=== PATIENT | female | born 1995 | race Caucasian/White ===

== ENCOUNTER → 2018-02-22 07:58 | Outpatient (CLI) | payer SELFPAY ==
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
== END ==
PROVIDERS: PCP Nurse Practitioner; Visit Provider Nurse Practitioner
DX: S29.019A Strain of muscle and tendon of unspecified wall of thorax, initial encounter (principal); S39.012A Strain of muscle, fascia and tendon of lower back, initial encounter; R20.8 Other disturbances of skin sensation
CPT/HCPCS: 72146; 72148; 76376

== ENCOUNTER 2018-04-19 08:00 | Outpatient (RCR) | payer BC, SELFPAY ==
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
== END 2018-04-19 08:05 | disposition home or self-care (01) ==
LOC: PT 08:00
PROVIDERS: Visit Provider Nurse Practitioner
DX: M51.24 Other intervertebral disc displacement, thoracic region (principal)
CPT/HCPCS: 97010; 97014; 97033; 97035; 97110; 97140; 97163; G0283

== ENCOUNTER → 2018-11-11 11:17 | Outpatient (CLI) | payer BC, SELFPAY ==
[2018-11-14 18:18] LABS: H. pylori Stool Ag, EIA Negative (Negative)
== END ==
PROVIDERS: Visit Provider Nurse Practitioner Family
DX: R10.9 Unspecified abdominal pain (principal); K21.9 Gastro-esophageal reflux disease without esophagitis
CPT/HCPCS: 87338

== ENCOUNTER → 2019-07-04 11:01 | Outpatient (POV) | payer BC, SELFPAY | PROVIDERS: PCP Otolaryngology; Visit Provider Otolaryngology | DX: Z00.00 Encounter for general adult medical examination without abnormal findings (principal) ==

== ENCOUNTER 2019-12-13 06:44 | Emergency (ER) | payer BC, SELFPAY ==
[2019-12-13 06:49] VITALS: BP 136/68; PULSE 94; RESP 20; TEMP 36.8; O2SAT 99; BMI 21.2
--- NOTE | 2019-12-13 06:50 | PC.NURSE ---
at the bedside
--- NOTE | 2019-12-13 07:03 | XR_ITS ---
PROCEDURE: XR CHEST PORTABLE CLINICAL HISTORY: soa Shortness of air COMPARISON: No exams were available for comparison FINDINGS: The cardiomediastinal silhouette and pulmonary vascularity are within normal limits. The lungs are clear without infiltrates, suspicious nodules, or pleural effusions. No acute bony abnormalities. IMPRESSION: No acute findings. Dictated by: Tomas Garg MD 12/13/2019 07:39 Electronically signed by Tomas Garg MD in [facility] 12/13/2019 07:39
--- NOTE | 2019-12-13 07:05 | HMH.EDGENADL ---
ED Disposition Clinical Impression: Laryngitis Disposition: Home, Self-Care Condition on Discharge: Good Instructions: DI for Laryngitis Prescriptions: Albuterol Sulfate [Proventil-HFA 90mcg/puff Inh] 1 - 2 puffs IH Q6HP PRN #1 inh PRN Reason: Wheezing Transmission Status: Received by [facility] # predniSONE [Prednisone 20mg Tab] 20 mg PO BID #10 tab Transmission Status: Received by [facility] # Referrals: PCP,No [Primary Care Provider] - - Critical Care Critical Care Time: No Attestation: On , the high probability of a clinically significant, sudden or life threatening deterioration of the following system(s) required my full and direct attention, intervention and personal management. The time I documented below is in addition to time spent performing reported procedures but includes the following listed in this critical care notation. Medical Decision Making - Medical Records Medical records reviewed: Yes: I reviewed the patient's medical records. - Diomedes Inquiry Pt receiving controlled substance: No Vital Signs: 12/13/19 06:49 Temperature 98.2 F Temperature Source Oral Pulse Rate [Left] 94 H Respiratory Rate 20 Blood Pressure [Right Arm] 136/68 Blood Pressure Mean [Right Arm] 90 Blood Pressure Source [Right Arm] Automatic Cuff Blood Pressure Position [Right Arm] Supine 02 Sat by Pulse Oximetry 99 Oxygen Delivery Method Room Air - Lab Data Lab results reviewed: Yes: I reviewed the patient's lab results. Lab Results 12/13/19 06:52: WBC 11.0 H, RBC 5.07, Hgb 15.5, Hct 45.5, MCV 89.8, MCH 30.6, MCHC 34.1, RDW 12.7, Plt Count 237, MPV 8.4, Neut % (Auto) 55.4, Lymph % (Auto) 37.6, [place] % (Auto) 4.0, Eos % (Auto) 2.0, Baso % (Auto) 0.9, Neut # (Auto) 6.1, Lymph # (Auto) 4.1, [place] # (Auto) 0.4, Eos # (Auto) 0.2, Baso # (Auto) 0.1 12/13/19 06:52: Sodium 141, Potassium 3.4 L, Chloride 102, Carbon Dioxide 29, Anion Gap 13.4, BUN 7, Creatinine 0.60, Estimated Creat Clear 124, Estimated GFR 123, Est GFR ( Amer) 149, Glucose 89, Calcium 9.5 12/13/19 06:52: SARS-CoV-2 IgG Ab (Rapid) Negative, SARS-CoV-2 IgM Ab (Rapid) Negative 12/13/19 07:10: Group A Strep Rapid Negative Result diagrams: 12/13/19 06:52 12/13/19 06:52 Orders (Tests/Meds): ED MEDICATIONS Discontinued Medications Generic Name Dose Route Start Last Admin Trade Name Vivek PRN Reason Stop Dose Admin Albuterol/Ipratropium 3 ml 12/13/19 06:55 12/13/19 06:57 Duoneb 3ml Neb IH 12/13/19 06:56 3 ml ONCE ONE Administration Methylprednisolone Sodium Succinate 125 mg 12/13/19 06:55 12/13/19 06:57 Solu-Medrol 125mg/2ml Vial IV 12/13/19 06:56 125 mg ONCE ONE Administration ORDERS Category Date Time Status SARS-CoV-2, LEYLA Stat Lab 12/13/19 07:25 Received Strep Screen Confirmation Stat Micro 12/13/19 07:10 Received - Radiology Data #1 Image(s): Chest Image Reviewed: Yes I reviewed the patient's radiology image Preliminary Findings: Normal/NAD - Reevaluation(s) Time: 07:42 Reevaluation #1: Breathing easily. Raspy voice. Medical Decision Narrative: Symptoms are consistent with laryngitis. She was not wheezing on arrival. I do not feel she is having an acute asthma attack. I think she would benefit most from steroids and will prescribe prednisone. She will be given a refill of her albuterol inhaler, which she needs anyway. She is already off work, she says her employer will not let her return until her boyfriend tests negative for COVID. She says on December 20 she will have been off work for 4 weeks. General Adult HPI - General Chief complaint: Shortness of Breath/Dyspnea Stated complaint: Asthma attack Time Seen by Provider: 12/13/19 06:55 Mode of Arrival: Wheelchair Limitations: No Limitations Description of Symptoms (Recalled from ER Triage Doc. by RN): Pt has been having trouble with her asthma since yesterday, worse today, last used her
[2019-12-13 07:13] LABS: Chloride 102 mmol/L (98-107); Sodium 141 mmol/L (136-145)
[2019-12-13 07:14] LABS: Potassium 3.4 mmoL/L (3.5-5.1)
[2019-12-13 07:15] LABS: Basophils # 0.1 K/mm3 (0-0.2); Basophils % 0.9 % (0.1-2.0); Eosinophils # 0.2 K/mm3 (0.0-0.4); Hematocrit 45.5 % (37.0-47.0); Hemoglobin 15.5 g/dL (12.2-16.2); Lymphocytes # 4.1 K/mm3 (0.7-4.5); Lymphocytes % 37.6 % (10-50); Mean Corpuscular HGB Conc 34.1 g/dL (31.8-35.4); Mean Corpuscular Hemoglobin 30.6 pg (27.0-31.2); Mean Corpuscular Volume 89.8 fl (81-99); Mean Platelet Volume 8.4 fl (7.4-10.4); Monocytes # 0.4 K/mm3 (0.1-1.0); Neutrophils # 6.1 K/mm3 (1.8-7.8); Neutrophils % 55.4 % (37.0-80.0); Platelet Count 237 K/mm3 (142-424); Red Blood Count 5.07 M/mm3 (4.20-5.40); Red Cell Distribution Width 12.7 % (11.5-17.5)
[2019-12-13 07:16] LABS: Blood Urea Nitrogen 7 mg/dl (7-17); Creatinine Clearance Estimated 124 mL/min (50-200); Estimated Glomerular Filt Rate 123 ml/min (>60); GFR (African American) 149 ML/MIN (>60)
[2019-12-13 07:17] LABS: Anion Gap 13.4 mEq/L (5-15); Calcium 9.5 mg/dl (8.4-10.2); Carbon Dioxide 29 mmol/L (22.0-30.0); Glucose 89 mg/dl (74-100)
[2019-12-13 07:26] LABS: Strep Scrn Group A (Rapid) Negative (Negative)
[2019-12-13 07:40] LABS: Coronavirus 19 IgG Antibody Negative (Negative); Coronavirus 19 IgM Antibody Negative (Negative)
[2019-12-13 08:05] VITALS: BP 136/68; PULSE 94; RESP 20; TEMP 36.8; O2SAT 99
[2019-12-14 13:38] LABS: Covid-19 Nasal PCR Sendout Lex NOT DETECTED
== END 2019-12-13 08:07 | disposition home or self-care (01) ==
PROVIDERS: Emergency Provider Emergency Medicine
DX: J04.0 Acute laryngitis (principal); E87.6 Hypokalemia; J45.909 Unspecified asthma, uncomplicated; G43.709 Chronic migraine without aura, not intractable, without status migrainosus; Z88.5 Allergy status to narcotic agent; Z90.49 Acquired absence of other specified parts of digestive tract
CPT/HCPCS: 71045; 80048; 85025; 86328; 87430; 96374; 99283; U0004

== ENCOUNTER → 2020-07-09 10:12 | Outpatient (CLI) | payer BC, SELFPAY | PROVIDERS: PCP Nurse Practitioner Family; Visit Provider Nurse Practitioner Family | DX: R55 Syncope and collapse (principal) | CPT/HCPCS: 93225; 93226 ==

== ENCOUNTER 2020-09-21 21:56 | Emergency (ER) | payer BC, SELFPAY ==
[2020-09-21 22:05] VITALS: BP 112/70; PULSE 106; RESP 18; TEMP 37; O2SAT 100; BMI 21.7
[2020-09-21 22:10] VITALS: BP 112/70; PULSE 103; O2SAT 97
[2020-09-21 22:19] LABS: Microscopic, Urine URINE MICROSCOPIC (MICROSCOPIC)
[2020-09-21 22:24] LABS: Appearance,Urine CLEAR (Clear); Bilirubin,Urine Negative (Negative); Blood, Urine TRACE-L (Negative); Color,Urine YELLOW (Yellow); Glucose,Urine (UA) Negative (Negative); Ketones,Urine Negative (Negative); Leukocyte Esterase,Urine Negative (Negative); Nitrate,Urine Negative (Negative); PH,Urine 5.5 (5.0-8.5); Protein,Urine TRACE (Negative); Specific Gravity, Urine >= 1.030 (1.005-1.030); Urobilinogen,Urine 0.2 EU/dl (0.2)
[2020-09-21 22:25] LABS: Urine Pregnancy, HCG Qual. Negative (Negative)
[2020-09-21 22:34] LABS: Bacteria,Urine Trace /lpf; Mucus,Urine 2+ /lpf; RBC,Urine Occasional #/hpf (0-3)
[2020-09-21 22:41] LABS: Basophils # 0.1 K/mm3 (0-0.2); Basophils % 0.8 % (0.1-2.0); Eosinophils # 0.1 K/mm3 (0.0-0.4); Eosinophils % 0.9 % (0.1-12.0); Hematocrit 42.4 % (37.0-47.0); Hemoglobin 14.1 g/dL (12.2-16.2); Lymphocytes # 3.2 K/mm3 (0.7-4.5); Mean Corpuscular HGB Conc 33.4 g/dL (31.8-35.4); Mean Corpuscular Hemoglobin 29.8 pg (27.0-31.2); Mean Corpuscular Volume 89.2 fl (81-99); Mean Platelet Volume 7.6 fl (7.4-10.4); Monocytes # 0.4 K/mm3 (0.1-1.0); Monocytes % 4.1 % (1.7-9.3); Neutrophils # 6.4 K/mm3 (1.8-7.8); Neutrophils % 63.2 % (37.0-80.0); Platelet Count 271 K/mm3 (142-424); Red Blood Count 4.75 M/mm3 (4.20-5.40); Red Cell Distribution Width 12.8 % (11.5-17.5); White Blood Count 10.2 K/mm3 (4.8-10.8)
[2020-09-21 22:48] LABS: Alanine Aminotransferase 30 U/L (12-78); Albumin/Globulin Ratio 1.4 (1.1-1.8); Alkaline Phosphatase 78 U/L (38-126); Amylase 80 U/L (30-110); Anion Gap 11.4 mEq/L (5-15); Aspartate Amino Transferase 40 U/L (14-36); Bilirubin,Total 0.4 mg/dl (0.2-1.3); Blood Urea Nitrogen 11 mg/dl (7-17); Calcium 9.5 mg/dl (8.4-10.2); Carbon Dioxide 28 mmol/L (22.0-30.0); Chloride 104 mmol/L (98-107); Creatinine Clearance Estimated 126 mL/min (50-200); Estimated Glomerular Filt Rate 122 ml/min (>60); GFR (African American) 147 ML/MIN (>60); Globulin 3.6 g/dL (1.3-3.2); Glucose 90 mg/dl (74-100); Lipase 113 U/L (23-300); Potassium 3.4 mmoL/L (3.5-5.1); Sodium 140 mmol/L (136-145); Total Protein,Serum 8.6 g/dl (6.3-8.2)
[2020-09-21 23:06] LABS: C-Reactive Protein 1.3 mg/L (0-4)
[2020-09-21 23:21] VITALS: BP 98/57; PULSE 66; O2SAT 99
[2020-09-21 23:30] LABS: Erythrocyte Sedimentation Rate 14 mm/hr (0-20)
--- NOTE | 2020-09-21 23:37 | HMH.EDNVD ---
ED Disposition Clinical Impression: Abdominal pain Qualifiers: Abdominal location: right lower quadrant Qualified Code(s): R10.31 - Right lower quadrant pain Disposition: Home, Self-Care Condition on Discharge: Good Instructions: DI for Acute Abdominal Pain Additional Instructions: fluids and see pcp for nidia olson Referrals: Karin Leblanc APRN [Primary Care Provider] - - Critical Care Critical Care Time: No Attestation: On 09/21/20, the high probability of a clinically significant, sudden or life threatening deterioration of the following system(s) required my full and direct attention, intervention and personal management. The time I documented below is in addition to time spent performing reported procedures but includes the following listed in this critical care notation. Medical Decision Making - Medical Records Medical records reviewed: Yes: I reviewed the patient's medical records. - Diomedes Inquiry Pt receiving controlled substance: No Vital Signs: 09/21/20 22:05 09/21/20 22:10 09/21/20 23:21 Temperature 98.6 F Temperature Source Oral Pulse Rate 103 H 66 Pulse Rate [Right Brachial] 106 H Respiratory Rate 18 Blood Pressure 112/70 98/57 L Blood Pressure [Right Arm] 112/70 Blood Pressure Mean [Right Arm] 84 Blood Pressure Source [Right Arm] Automatic Cuff Blood Pressure Position [Right Arm] Sitting 02 Sat by Pulse Oximetry 100 97 99 Oxygen Delivery Method Room Air - Lab Data Lab results reviewed: Yes: I reviewed the patient's lab results. Lab Results 09/21/20 22:15: Urine Color Yellow, Urine Appearance Clear, Urine pH 5.5, Ur Specific [place] >= 1.030, Urine Protein Trace, Urine Glucose (UA) Negative, Urine Ketones Negative, Urine Blood Trace-l, Urine Nitrate Negative, Urine Bilirubin Negative, Urine Urobilinogen 0.2, Ur Leukocyte Esterase Negative, Urine RBC Occasional, Urine WBC 5-10, Ur Squamous Epith Cells None, Urine Bacteria Trace, Urine Mucus 2+ 09/21/20 22:15: Urine HCG, Qual Negative 09/21/20 22:35: WBC 10.2, RBC 4.75, Hgb 14.1, Hct 42.4, MCV 89.2, MCH 29.8, MCHC 33.4, RDW 12.8, Plt Count 271, MPV 7.6, Neut % (Auto) 63.2, Lymph % (Auto) 31.0, [place] % (Auto) 4.1, Eos % (Auto) 0.9, Baso % (Auto) 0.8, Neut # (Auto) 6.4, Lymph # (Auto) 3.2, [place] # (Auto) 0.4, Eos # (Auto) 0.1, Baso # (Auto) 0.1 09/21/20 22:35: Sodium 140, Potassium 3.4 L, Chloride 104, Carbon Dioxide 28, Anion Gap 11.4, BUN 11, Creatinine 0.60, Estimated Creat Clear 126, Estimated GFR 122, Est GFR ( Amer) 147, Glucose 90, Calcium 9.5, Total Bilirubin 0.4, AST 40 H, ALT 30, Alkaline Phosphatase 78, C-Reactive Protein 1.3, Total Protein 8.6 H, Albumin 5.0, Globulin 3.6 H, Albumin/Globulin Ratio 1.4, Amylase 80, Lipase 113 09/21/20 22:35: ESR 14 Result diagrams: 09/21/20 22:35 09/21/20 22:35 Orders (Tests/Meds): ED MEDICATIONS Generic Name Dose Route Start Last Admin Trade Name Freq PRN Reason Stop Dose Admin Sodium Chloride 1,000 mls @ 999 mls/hr 09/21/20 23:45 09/22/20 00:00 Sod Chlor 0.9% 1000ml Bag IV 09/22/20 00:45 999 mls/hr .Q1H1M LUZ Administration Ketorolac Tromethamine 30 mg 09/22/20 01:08 Ketorolac 30mg/Ml Vial IV 09/22/20 01:09 ONCE ONE Discontinued Medications Generic Name Dose Route Start Last Admin Trade Name Freq PRN Reason Stop Dose Admin Diatrizoate Meglum/Diatrizoate Sod 30 ml 09/21/20 22:20 09/21/20 22:39 Diatrizoate Heaven 66% & Diatrizoate Na 10% 30ml Udc PO 09/21/20 22:21 30 ml ONCE ONE Administration Diatrizoate Meglum/Diatrizoate Sod 20 ml 09/22/20 00:39 09/22/20 00:41 Diatrizoate Meglumine(Gastrografin) 66%-10% 120ml PO 09/22/20 00:40 20 ml ONCE ONE Administration Iopamidol 75 ml 09/22/20 00:39 09/22/20 00:41 Iopamidol-370 (76%);100ml Bottle IV 09/22/20 00:40 75 ml ONCE ONE Administration Sodium Chloride 10 ml 09/22/20 00:39 09/22/20 00:41 Sodium Chloride 0.9% 10ml Syr (Rad Only) IV 09/22/20 00:40
--- NOTE | 2020-09-22 00:15 | CT_ITS ---
PROCEDURE INFORMATION: Exam: CT Abdomen And Pelvis With Contrast Exam date and time: 09/22/2020 12:15 AM Age: 25 years old Clinical indication: Nausea and other: Diarrhea; Abdominal pain; Localized; Right lower quadrant (rlq); Prior surgery; Surgery date: 6+ months; Patient HX: Rlq pain with n/d, HX of gallbladder SX; Additional info: Rlq abd pain TECHNIQUE: Imaging protocol: Computed tomography of the abdomen and pelvis with contrast. Radiation optimization: All CT scans at this facility use at least one of these dose optimization techniques: automated exposure control; mA and/or kV adjustment per patient size (includes targeted exams where dose is matched to clinical indication); or iterative reconstruction. Contrast material: ISOVUE; Contrast volume: 75 ml; Contrast route: IV; Other contrast: Oral, gastro, 30; COMPARISON: ABDPELWO CT abdomen pelvis wo con 11/25/2018 3:39 PM FINDINGS: Lungs: Lung bases are clear. Heart: Visualized cardiac chambers are normal. Liver: Normal contour, attenuation and size. No intrahepatic mass. Gallbladder and bile ducts: Status post cholecystectomy. Pancreas: No peripancreatic inflammatory infiltration or fluid. No ductal dilation. Spleen: No splenomegaly or splenic mass. Adrenal glands: Normal. No mass. Kidneys and ureters: No nephrolithiasis, ureterolithiasis or hydronephrosis. Stomach and bowel: There is moderate fecal retention within the right hemicolon. No small bowel obstruction or ileus is seen. There is no gastric wall thickening. Appendix: The appendix is not seen well because of adjacent bowel loops but the visualized portions of the appendix appear air-filled and normal in caliber. Intraperitoneal space: No free fluid, free air or focal inflammatory infiltration. Vasculature: No abdominal aortic aneurysm. The portal, splenic and superior mesenteric veins appear patent. Lymph nodes: No enlarged lymph nodes within the retroperitoneal space or mesentery. Urinary bladder: Unremarkable as visualized. Reproductive: Unremarkable as visualized. Bones/joints: Unremarkable. No acute fracture. No osteolytic or blastic bone lesions. Soft tissues: Paraspinous and extracorporeal soft tissues are unremarkable. IMPRESSION: 1. Status post cholecystectomy. 2. Moderate fecal retention within the right hemicolon. 3. Incomplete visualization of the appendix but the portion seen appears normal.
[2020-09-22 00:43] VITALS: BP 112/64; PULSE 74; O2SAT 100
[2020-09-22 01:17] VITALS: BP 101/59; PULSE 78; RESP 16; TEMP 36.6; O2SAT 100
== END 2020-09-22 01:19 | disposition home or self-care (01) ==
PROVIDERS: Emergency Provider Emergency Medicine; PCP Nurse Practitioner Family
DX: R10.31 Right lower quadrant pain (principal); R11.0 Nausea; G43.709 Chronic migraine without aura, not intractable, without status migrainosus
CPT/HCPCS: 74177; 80053; 81001; 81025; 82150; 83690; 85025; 85651; 86140; 87086; 96365; 99283; Q9967

== ENCOUNTER 2021-02-09 11:08 | Emergency (ER) | payer SELFPAY ==
[2021-02-09 11:10] VITALS: BP 109/64; PULSE 93; RESP 18; TEMP 37.1; O2SAT 99; BMI 20.8
--- NOTE | 2021-02-09 11:49 | HMH.EDGENADL ---
ED Disposition Clinical Impression: Qualifiers: Weeks of gestation: less than 8 weeks Qualified Code(s): Z3A.01 - Less than 8 weeks gestation of Disposition: Home, Self-Care Condition on Discharge: Good Instructions: Human Chorionic Gonadotropin Prescriptions: Pnv No.95/Ferrous Fum/Folic AC [ Caplet] 1 each PO DAILY #30 tab Transmission Status: Pending to [facility] #[id number] Referrals: Karin Leblanc APRN [Primary Care Provider] - Christoph Gray MD [Staff Physician] - - Critical Care Critical Care Time: No Attestation: On 02/09/21, the high probability of a clinically significant, sudden or life threatening deterioration of the following system(s) required my full and direct attention, intervention and personal management. The time I documented below is in addition to time spent performing reported procedures but includes the following listed in this critical care notation. Medical Decision Making - Medical Records Medical records reviewed: Yes: I reviewed the patient's medical records. - Diomedes Inquiry Pt receiving controlled substance: No Vital Signs: 02/09/21 11:10 Temperature 98.7 F Temperature Source Oral Pulse Rate [Left Radial] 93 H Respiratory Rate 18 Blood Pressure [Right Arm] 109/64 L Blood Pressure Mean [Right Arm] 79 Blood Pressure Source [Right Arm] Automatic Cuff Blood Pressure Position [Right Arm] Sitting 02 Sat by Pulse Oximetry 99 Oxygen Delivery Method Room Air - Lab Data Lab Results 02/09/21 11:30: Urine Color Yellow, Urine Appearance Clear, Urine pH 6.0, Ur Specific [place] >= 1.030, Urine Protein Negative, Urine Glucose (UA) Negative, Urine Ketones 1+, Urine Blood Trace-i, Urine Nitrate Negative, Urine Bilirubin Negative, Urine Urobilinogen 0.2, Ur Leukocyte Esterase Negative, Urine RBC Occasional, Urine WBC None, Ur Squamous Epith Cells Occasional, Amorphous Sediment 1+, Urine Bacteria None, Urine Mucus Trace 02/09/21 11:30: Urine HCG, Qual Positive 02/09/21 11:55: WBC 6.0, RBC 4.54, Hgb 13.8, Hct 42.8, MCV 94.3, MCH 30.3, MCHC 32.1, RDW 12.4, Plt Count 246, MPV 8.9, Neut % (Auto) 55.5, Lymph % (Auto) 35.8, [place] % (Auto) 6.6, Eos % (Auto) 0.9, Baso % (Auto) 1.2, Neut # (Auto) 3.3, Lymph # (Auto) 2.2, [place] # (Auto) 0.4, Eos # (Auto) 0.1, Baso # (Auto) 0.1 02/09/21 11:55: Sodium 139, Potassium 3.6, Chloride 105, Carbon Dioxide 23, Anion Gap 14.6, BUN 7, Creatinine 0.50 L, Estimated Creat Clear 140, Estimated GFR 150, Est GFR ( Amer) 182, Glucose 91, Calcium 9.3, Total Bilirubin 0.5, AST 44 H, ALT 31, Alkaline Phosphatase 70, Total Protein 7.6, Albumin 4.5, Globulin 3.1, Albumin/Globulin Ratio 1.5, HCG, Quant 5193 H Result diagrams: 02/09/21 11:55 02/09/21 11:55 Orders (Tests/Meds): ED MEDICATIONS Discontinued Medications Generic Name Dose Route Start Last Admin Trade Name Renéq PRN Reason Stop Dose Admin Acetaminophen 500 mg 02/09/21 11:38 02/09/21 11:59 Acetaminophen 500mg Tab PO 02/09/21 11:39 Not Given ONCE ONE Sodium Chloride 1,000 mls @ 999 mls/hr 02/09/21 11:45 02/09/21 11:59 Sod Chlor 0.9% 1000ml Bag IV 02/09/21 12:45 Not Given .Q1H1M LUZ - Reevaluation(s) Time: 13:25 Reevaluation #1: On reevaluation, the patient does have hCG consistent with early . I did explain to the patient that I would like to try an ultrasound given her levels. She is declining any medications and further imaging. Patient states she does not have insurance and does not want to be charged for any of this. I did explain to her that we need to obtain these test regardless of her insurance status. She declines again. I did explain to the patient that she needs to follow-up in the emergency department or with [employer] [employer] in 48 hours for repeat hCG. She verbalized understanding. Given strict return precautions. Medical Decision Narrative: 45-year-old female presented to the emergency department with some abdominal cramp
[2021-02-09 12:18] LABS: Chloride 105 mmol/L (98-107); Potassium 3.6 mmoL/L (3.5-5.1); Sodium 139 mmol/L (136-145)
[2021-02-09 12:19] LABS: Basophils # 0.1 K/mm3 (0-0.2); Basophils % 1.2 % (0.1-2.0); Eosinophils # 0.1 K/mm3 (0.0-0.4); Eosinophils % 0.9 % (0.1-12.0); Hematocrit 42.8 % (37.0-47.0); Hemoglobin 13.8 g/dL (12.2-16.2); Lymphocytes # 2.2 K/mm3 (0.7-4.5); Lymphocytes % 35.8 % (10-50); Mean Corpuscular HGB Conc 32.1 g/dL (31.8-35.4); Mean Corpuscular Hemoglobin 30.3 pg (27.0-31.2); Mean Corpuscular Volume 94.3 fl (81-99); Mean Platelet Volume 8.9 fl (7.4-10.4); Monocytes # 0.4 K/mm3 (0.1-1.0); Monocytes % 6.6 % (1.7-9.3); Neutrophils # 3.3 K/mm3 (1.8-7.8); Neutrophils % 55.5 % (37.0-80.0); Platelet Count 246 K/mm3 (142-424); Red Blood Count 4.54 M/mm3 (4.20-5.40); Red Cell Distribution Width 12.4 % (11.5-17.5)
[2021-02-09 12:20] LABS: Alanine Aminotransferase 31 U/L (12-78); Alkaline Phosphatase 70 U/L (38-126); Aspartate Amino Transferase 44 U/L (14-36); Bilirubin,Total 0.5 mg/dl (0.2-1.3); Blood Urea Nitrogen 7 mg/dl (7-17); Creatinine Clearance Estimated 140 mL/min (50-200); Estimated Glomerular Filt Rate 150 ml/min (>60); GFR (African American) 182 ML/MIN (>60)
[2021-02-09 12:21] LABS: Albumin Level 4.5 g/dl (3.5-5.0); Albumin/Globulin Ratio 1.5 (1.1-1.8); Anion Gap 14.6 mEq/L (5-15); Calcium 9.3 mg/dl (8.4-10.2); Carbon Dioxide 23 mmol/L (22.0-30.0); Globulin 3.1 g/dL (1.3-3.2); Glucose 91 mg/dl (74-100); Total Protein,Serum 7.6 g/dl (6.3-8.2)
[2021-02-09 12:26] LABS: Urine Pregnancy, HCG Qual. Positive (Negative)
[2021-02-09 12:38] LABS: HCG,Quantitative 5193 mIU/ml (0-5.42)
[2021-02-09 13:01] LABS: Microscopic, Urine URINE MICROSCOPIC (MICROSCOPIC)
[2021-02-09 13:03] LABS: Appearance,Urine CLEAR (Clear); Bilirubin,Urine Negative (Negative); Blood, Urine TRACE-I (Negative); Color,Urine YELLOW (Yellow); Glucose,Urine (UA) Negative (Negative); Ketones,Urine 1+ (Negative); Leukocyte Esterase,Urine Negative (Negative); Nitrate,Urine Negative (Negative); Protein,Urine Negative (Negative); Specific Gravity, Urine >= 1.030 (1.005-1.030); Urobilinogen,Urine 0.2 EU/dl (0.2)
[2021-02-09 13:17] LABS: Amorphous Sediment,Urine 1+ /lpf; Mucus,Urine Trace /lpf; RBC,Urine Occasional #/hpf (0-3); Squamous Epithelial Cell,Urine Occasional #/hpf (0-5)
[2021-02-09 13:41] VITALS: BP 110/69; PULSE 87; RESP 18; TEMP 37.1; O2SAT 98
== END 2021-02-09 13:42 | disposition home or self-care (01) ==
PROVIDERS: Emergency Provider Emergency Medicine; PCP Nurse Practitioner Family
DX: R10.30 Lower abdominal pain, unspecified (principal); Z3A.01 Less than 8 weeks gestation of pregnancy
CPT/HCPCS: 80053; 81001; 81025; 84702; 85025; 99282

== ENCOUNTER 2021-02-15 13:04 | Emergency (ER) | payer SELFPAY ==
[2021-02-15 13:06] VITALS: BP 100/61; PULSE 82; RESP 18; TEMP 36.9; O2SAT 100; BMI 20.8
--- NOTE | 2021-02-15 13:19 | HMH.EDGENADL ---
ED Disposition Clinical Impression: Qualifiers: Weeks of gestation: less than 8 weeks Qualified Code(s): Z3A.01 - Less than 8 weeks gestation of Abdominal pain Qualifiers: Abdominal location: lower abdomen, unspecified Qualified Code(s): R10.30 - Lower abdominal pain, unspecified Disposition: Home, Self-Care Condition on Discharge: Good Instructions: DI for Acute Abdominal Pain, DI for -- Discomforts and Remedies Additional Instructions: Tylenol for pain. Follow-up with Dr. Damon, call Wednesday to make appointment. Return to emergency department if severe pain, vomiting, fever, vaginal bleeding. Referrals: Provider,Referral, [Primary Care Provider] - - Critical Care Critical Care Time: No Attestation: On 02/15/21, the high probability of a clinically significant, sudden or life threatening deterioration of the following system(s) required my full and direct attention, intervention and personal management. The time I documented below is in addition to time spent performing reported procedures but includes the following listed in this critical care notation. Medical Decision Making - Medical Records Medical records reviewed: Yes: I reviewed the patient's medical records. MR Comment: Reviewed emergency department note from 02/09/2021. Physician reports that patient refused ultrasound. Was advised to follow-up with OB and to have repeat quantitative beta-hCG in 2 days. Beta hCG was 5193 in ER. No repeat at this facility. - Diomedes Inquiry Pt receiving controlled substance: No Vital Signs: 02/15/21 13:06 Temperature 98.5 F Temperature Source Oral Pulse Rate [Left Radial] 82 Respiratory Rate 18 Blood Pressure [Right Arm] 100/61 L Blood Pressure Mean [Right Arm] 74 Blood Pressure Source [Right Arm] Automatic Cuff Blood Pressure Position [Right Arm] Sitting 02 Sat by Pulse Oximetry 100 Oxygen Delivery Method Room Air - Lab Data Lab Results 02/15/21 13:26: Urine Color Yellow, Urine Appearance Clear, Urine pH 7.0, Ur Specific [place] 1.020, Urine Protein Negative, Urine Glucose (UA) Negative, Urine Ketones Negative, Urine Blood Trace-i, Urine Nitrate Negative, Urine Bilirubin Negative, Urine Urobilinogen 0.2, Ur Leukocyte Esterase Negative, Urine RBC Occasional, Urine WBC None, Ur Squamous Epith Cells None, Urine Bacteria Trace 02/15/21 13:40: WBC 7.1, RBC 4.87, Hgb 14.8, Hct 45.0, MCV 92.5, MCH 30.5, MCHC 33.0, RDW 12.4, Plt Count 258, MPV 8.8, Neut % (Auto) 59.3, Lymph % (Auto) 34.6, [place] % (Auto) 4.1, Eos % (Auto) 0.6, Baso % (Auto) 1.3, Neut # (Auto) 4.2, Lymph # (Auto) 2.5, [place] # (Auto) 0.3, Eos # (Auto) 0.0, Baso # (Auto) 0.1 02/15/21 13:40: Sodium 138, Potassium 3.7, Chloride 103, Carbon Dioxide 26, Anion Gap 12.7, BUN 4 L, Creatinine 0.40 L, Estimated Creat Clear 176, Estimated GFR 194, Est GFR ( Amer) 235, Glucose 90, Calcium 9.5 Result diagrams: 02/15/21 13:40 02/15/21 13:40 Orders (Tests/Meds): ORDERS Category Date Time Status Basic Metabolic Panel Stat Lab 02/15/21 13:40 Results Beta HCG, Quant [HCG,Quantitative] Stat Lab 02/15/21 13:40 Results US OB transvaginal Stat Ultrasound 02/15/21 13:23 Taken - US Data US Images: Pelvis Findings Narrative: As per [facility] procedure, ultrasound report received from vehicle modification technician: Viable 6-week 1 day intrauterine with cardiac activity. Right corpus luteum cyst. Some fluid-filled loops of bowel superior to uterus. Tilted uterus. General Adult HPI - General Stated complaint: maybe a few weeks , abdominal pain Time Seen by Provider: 02/15/21 13:10 - History of Present Illness HPI narrative: Patient states she is prima , a few weeks , and having suprapubic abdominal pain. States that she found out she was a few weeks ago and then was seen here in this emergency department last week with the same pain. She says the pain started on 02/02/2021 and is in
--- NOTE | 2021-02-15 13:23 | US_ITS ---
PROCEDURE INFORMATION: Exam: US , Transvaginal Exam date and time: 02/15/2021 1:23 PM Age: 25 years old Clinical indication: complicated by abdominal or pelvic pain; Lower; First trimester (<14 weeks 0 days); Gestational age or lmp: 8-10; ; Additional info: Abdominal pain, , R/O ectopic TECHNIQUE: Imaging protocol: Real-time transvaginal obstetrical ultrasound of the maternal pelvis with image documentation. Transvaginal imaging was used for better evaluation of the fetus, adnexa, and/or cervix. COMPARISON: CT ABDOMEN PELVIS W CON 09/22/2020 12:21 AM FINDINGS: Gestation: Intrauterine gestational sac containing a yolk sac and pole. heart rate: heart tones measure 119 bpm. BIOMETRY: Gestational age (AUA): [place]-rump length measures 0.39 cm yielding estimated gestational age of 6 weeks 1 day. MATERNAL: Uterus: Uterus retroverted. Right adnexa: Right ovary measures 3.3 x 3.2 x 2.9 cm. Corpus luteum cyst evident in the right ovary. Left adnexa: Left ovary measures 2.4 x 1.0 x 2.3 cm. Intraperitoneal space: Trace free fluid. IMPRESSION: 1. Intrauterine gestational sac containing a yolk sac and pole. 2. [place]-rump length measures 0.39 cm yielding estimated gestational age of 6 weeks 1 day.
--- NOTE | 2021-02-15 13:26 | PC.NURSE ---
Notified rad need for transvaginal US
[2021-02-15 13:59] LABS: Basophils # 0.1 K/mm3 (0-0.2); Basophils % 1.3 % (0.1-2.0); Eosinophils % 0.6 % (0.1-12.0); Hemoglobin 14.8 g/dL (12.2-16.2); Lymphocytes # 2.5 K/mm3 (0.7-4.5); Lymphocytes % 34.6 % (10-50); Mean Corpuscular Hemoglobin 30.5 pg (27.0-31.2); Mean Corpuscular Volume 92.5 fl (81-99); Mean Platelet Volume 8.8 fl (7.4-10.4); Monocytes # 0.3 K/mm3 (0.1-1.0); Monocytes % 4.1 % (1.7-9.3); Neutrophils # 4.2 K/mm3 (1.8-7.8); Neutrophils % 59.3 % (37.0-80.0); Platelet Count 258 K/mm3 (142-424); Red Blood Count 4.87 M/mm3 (4.20-5.40); Red Cell Distribution Width 12.4 % (11.5-17.5); White Blood Count 7.1 K/mm3 (4.8-10.8)
[2021-02-15 14:04] LABS: Chloride 103 mmol/L (98-107); Potassium 3.7 mmoL/L (3.5-5.1); Sodium 138 mmol/L (136-145)
[2021-02-15 14:07] LABS: Anion Gap 12.7 mEq/L (5-15); Blood Urea Nitrogen 4 mg/dl (7-17); Calcium 9.5 mg/dl (8.4-10.2); Carbon Dioxide 26 mmol/L (22.0-30.0); Creatinine Clearance Estimated 176 mL/min (50-200); Estimated Glomerular Filt Rate 194 ml/min (>60); GFR (African American) 235 ML/MIN (>60); Glucose 90 mg/dl (74-100)
[2021-02-15 14:10] LABS: Microscopic, Urine URINE MICROSCOPIC (MICROSCOPIC)
[2021-02-15 14:17] LABS: Appearance,Urine CLEAR (Clear); Bilirubin,Urine Negative (Negative); Blood, Urine TRACE-I (Negative); Color,Urine YELLOW (Yellow); Glucose,Urine (UA) Negative (Negative); Ketones,Urine Negative (Negative); Leukocyte Esterase,Urine Negative (Negative); Nitrate,Urine Negative (Negative); Protein,Urine Negative (Negative); Urobilinogen,Urine 0.2 EU/dl (0.2)
[2021-02-15 14:30] VITALS: BP 104/59; PULSE 70; RESP 18; O2SAT 100
[2021-02-15 14:33] LABS: Bacteria,Urine Trace /lpf; RBC,Urine Occasional #/hpf (0-3)
[2021-02-15 14:52] LABS: HCG,Quantitative 19031 mIU/ml (0-5.42)
[2021-02-15 15:29] VITALS: BP 108/53; PULSE 66; RESP 14; TEMP 36.9; O2SAT 100
== END 2021-02-15 15:30 | disposition home or self-care (01) ==
PROVIDERS: Emergency Provider Emergency Medicine
DX: R10.30 Lower abdominal pain, unspecified (principal); Z3A.01 Less than 8 weeks gestation of pregnancy
CPT/HCPCS: 76817; 80048; 81001; 84702; 85025; 99283

== ENCOUNTER 2021-03-23 09:07 | Emergency (ER) | payer BC, SELFPAY ==
[2021-03-23 09:57] VITALS: BP 114/49; PULSE 77; RESP 18; TEMP 36.9; O2SAT 100; BMI 20.9
[2021-03-23 10:08] LABS: UTC Strep Screen (Rapid) Positive (Negative)
[2021-03-23 10:35] VITALS: BP 114/79; PULSE 77; RESP 18; TEMP 36.9
--- NOTE | 2021-03-23 10:42 | HMH.EDUTC ---
[facility] [place] Clinical Impression: Strep throat Qualifiers: Weeks of gestation: 12 weeks Qualified Code(s): Z3A.12 - 12 weeks gestation of Disposition: Home, Self-Care Condition on Discharge: Good Instructions: Strep Throat, DI for Strep Throat Additional Instructions: Drink plenty of fluids. Take tylenol or ibuprofen for pain or fever. Take the medications as directed. Follow up with your regular doctor. GO TO THE ER FOR ANY WORSENING SYMPTOMS Throw your tooth brush away and get a new one. Prescriptions: Amoxicillin [Amoxicillin 500mg Tab] 500 mg PO TID 10 Days #30 tab Transmission Status: Received by [employer] #[id number] Referrals: Provider,Referral, [Primary Care Provider] - Forms: Work/School Release Time of Disposition: 10:44 Medical Decision Making - Medical Records Medical records reviewed: No: I reviewed the patient's medical records. - Diomedes Inquiry Pt receiving controlled substance: No Vital Signs: 03/23/21 09:57 03/23/21 10:35 Temperature 98.4 F 98.4 F Temperature Source Oral Pulse Rate 77 Pulse Rate [Left] 77 Respiratory Rate 18 18 Blood Pressure 114/79 Blood Pressure [Right Arm] 114/49 L Blood Pressure Mean [Right Arm] 70 02 Sat by Pulse Oximetry 100 - Lab Data Lab results reviewed: Yes: I reviewed the patient's lab results. Lab Results 03/23/21 09:58: Strep Scn Rapid Clinic Positive A [facility] [place] - General Stated complaint: Sore Throat,Cough, Headache,congestion Time Seen by Provider: 03/23/21 10:43 Mode of Arrival: Ambulatory Source of Information: Patient Description of Symptoms (Recalled from Triage Doc. by RN): pt c/o a sore throat with white spots. pt is 12 wks . HEENT Symptoms (Recalled from RN notes): No Resp Symptoms (Recalled from RN notes): No Skin Symptoms (Recalled from RN notes): Yes (sore throat) MS Symptoms (Recalled from RN notes): No Functional Status (Recalled from RN notes): na - History of Present Illness Provider Complaint: She c/o sore throat for the past 3 days. She is 12 weeks . - Related Data Home Medications Medication Instructions Recorded Confirmed Pnv No.95/Ferrous Fum/Folic AC 1 each PO DAILY 02/15/21 02/15/21 [ Caplet] Previous Rx's Medication Instructions Recorded Albuterol Sulfate [Proventil-HFA 1 - 2 puffs IH Q6HP PRN #1 inh 12/13/19 90mcg/puff Inh] Amoxicillin [Amoxicillin 500mg Tab] 500 mg PO TID 10 Days #30 tab 03/23/21 Allergies Allergy/AdvReac Type Severity Reaction Status Date / Time hydrocodone [HYDROCODONE] Allergy Unknown Verified 04/04/18 11:38 propranolol Allergy Verified 02/15/21 13:50 - Worker's Comp Is this a Worker's Comp case?: No [facility] History - Hepatitis A Screen Drug use history?: No High risk sexual behaviors?: No History of sexually transmitted infection?: No Currently employed?: No Childcare worker?: No Do you have indoor plumbing?: Yes Do you have electricity?: Yes Attestation statement:: This patient has been screened for Hepatitis A risk factors. I have reviewed the patient's past medical history: Yes Medical History: Reports:: Migraine Denies:: Diabetes Mellitus Type 1, Diabetes Mellitus Type 2 Other Surgeries: Yes: No Previous Surgery, Cholecystectomy Amputation: No Fractures: No - Social History Smoking Status: Never smoker Alcohol Intake: never Alcohol Intake Frequency:: holidays/special occasions only Occupational Status: employed Housing: house Household Members: family Family Hx:: Non-contributory ROS Obtained: Yes All systems reviewed & no additional complaints - Constitutional Constitutional: Reports as per HPI - Eyes Eyes: Denies eye discharge - ENT Ears, Nose, Mouth, and Throat: Reports as per HPI - Cardiovascular Cardiovascular: Denies chest pain - Respiratory Respiratory: Reports as per HPI Physical Exam - General General appearance:
== END 2021-03-23 11:07 | disposition home or self-care (01) ==
PROVIDERS: Emergency Provider Nurse Practitioner Family; PCP Registered Nurse
DX: J02.0 Streptococcal pharyngitis (principal); Z3A.12 12 weeks gestation of pregnancy; G43.709 Chronic migraine without aura, not intractable, without status migrainosus
CPT/HCPCS: 87880; 99202; G0463

== ENCOUNTER 2023-04-23 12:24 | Emergency (ER) | payer SELFPAY ==
--- NOTE | 2023-04-23 12:23 | ECG_ITS ---
APPROVED REPORT Exam: Resting ECG HR:56 bpm ECG Measurements Heart Rate 56 AXES NE 129 P 80 QRSd 79 QRS 83 QT 385 T 67 QTc 377 Conclusion SINUS BRADYCARDIA WITH SINUS ARRHYTHMIA BORDERLINE ECG UNCONFIRMED REPORT Electronically signed by : Анрдей Woods MD 04/24/2023 09:57:27
[2023-04-23 12:25] VITALS: BP 105/61; PULSE 71; RESP 15; TEMP 36.7; O2SAT 100; BMI 21.5
[2023-04-23 12:30] VITALS: BP 113/64; PULSE 76; O2SAT 100
--- NOTE | 2023-04-23 12:35 | XR_ITS ---
FINAL REPORT CLINICAL HISTORY: chest pain COMPARISON: 12/13/2019 FINDINGS: Two views of the chest were obtained. The heart size and pulmonary vascularity are within normal limits. The mediastinum is normal. No acute pulmonary abnormality is identified. There is no pneumothorax. The bony thorax is intact. IMPRESSION: No active cardiopulmonary disease. Reviewed, Interpreted and Dictated by Adam Vizcaino III, MD Transcribed by Kendra Fermin Authenticated and [facility]
[2023-04-23 12:42] LABS: Basophils # 0.1 K/mm3 (0-0.2); Basophils % 0.8 % (0.1-2.0); Eosinophils # 0.2 K/mm3 (0.0-0.4); Eosinophils % 2.5 % (0.1-12.0); Hemoglobin 15.2 g/dL (12.2-16.2); Lymphocytes # 4.3 K/mm3 (0.7-4.5); Lymphocytes % 47.6 % (10-50); Mean Corpuscular HGB Conc 33.1 g/dL (31.8-35.4); Mean Corpuscular Hemoglobin 30.1 pg (27.0-31.2); Mean Platelet Volume 9.4 fl (7.4-10.4); Monocytes # 0.4 K/mm3 (0.1-1.0); Monocytes % 3.9 % (1.7-9.3); Neutrophils # 4.1 K/mm3 (1.8-7.8); Neutrophils % 45.2 % (37.0-80.0); Platelet Count 221 K/mm3 (142-424); Red Blood Count 5.06 M/mm3 (4.20-5.40); Red Cell Distribution Width 12.8 % (11.5-17.5); White Blood Count 9.1 K/mm3 (4.8-10.8)
[2023-04-23 12:44] LABS: Chloride 102 mmol/L (98-107); Potassium 3.6 mmoL/L (3.5-5.1); Sodium 140 mmol/L (136-145)
[2023-04-23 12:47] LABS: Anion Gap 13.6 mEq/L (5-15); Blood Urea Nitrogen 12 mg/dl (7-17); Calcium 8.9 mg/dl (8.4-10.2); Carbon Dioxide 28 mmol/L (22.0-30.0); Creatinine Clearance Estimated 119 mL/min (50-200); Estimated Glomerular Filt Rate 120 ml/min (>60); GFR (African American) 145 ML/MIN (>60); Glucose 103 mg/dl (74-100)
[2023-04-23 13:00] VITALS: BP 99/57; PULSE 60; RESP 16; O2SAT 100
[2023-04-23 13:01] LABS: Troponin I < 0.01 ng/ml (0.00-0.034)
[2023-04-23 13:14] LABS: HCG Qualitative, Serum Negative (Negative)
--- NOTE | 2023-04-23 13:27 | PC.NURSE ---
Assumed care of patient at this time.
[2023-04-23 13:30] VITALS: BP 103/56; PULSE 70; RESP 16; O2SAT 100
--- NOTE | 2023-04-23 13:30 | PC.NURSE ---
Rounded on patient; call light within reach of patient
--- NOTE | 2023-04-23 13:33 | PC.NURSE ---
Pt to XR
[2023-04-23 14:10] VITALS: BP 100/48; PULSE 65; RESP 16; TEMP 36.7; O2SAT 97
--- NOTE | 2023-04-23 16:20 | HMH.EDGENADL ---
Discharge Plan Disposition Patient Disposition: Home, Self-Care Condition: Good Prescriptions Prescriptions: New hydroxyzine HCl 25 mg tablet 25 mg PO Q8H PRN (Reason: itching) Qty: 20 0RF No Action albuterol sulfate 200 PUFFS HFA aerosol inhaler 1 - 2 puffs IH Q6HP PRN (Reason: Wheezing) Qty: 1 0RF amoxicillin 500 MG tablet 500 mg PO TID 10 Days Qty: 30 0RF PNV cmb#95-ferrous fumarate-FA 1 EACH tablet 1 each PO DAILY Referrals Follow up/Referrals: Provider,Referral, MD [Primary Care Provider] - See instructions Activity Restrictions/Add. Instructions Additional Instructions/Restrictions: You were evaluated in the emergency department today. At this time, feel that your symptoms are likely related to anxiety. Please follow-up with a primary care provider as soon as you are able to. Return to the emergency department for new or worsening symptoms. 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 It can make you sleepy. Clinical Impressions Clinical Impression: Anxiety Instructions Patient Instructions: DI for Atypical Chest Pain, DI for Anxiety -- Adult Discharge ED Provider: Kathrin Acevedo General Adult HPI General Chief complaint: Chest Pain Stated complaint: chest pain Time Seen by Provider: 04/23/23 12:45 Mode of Arrival: Ambulatory Source of Information: Patient Limitations: No Limitations Description of Symptoms (Recalled from ER Triage Doc. by RN): c/o right side/under arm pain, goes into her right shoulder than left shoulder into her neck, symptoms started 3 weeks ago, History of Present Illness HPI narrative: This patient is a 27-year-old female presenting to the emergency department for evaluation with concern for chest pain. Patient reports that for the last week, she has had intermittent episodes of anxiety/panic. She states that she gets very flushed and feels like she is going to pass out. Today, she started having chest pain radiating up into both of her shoulders associated with this type of episode. She was sitting at work when it happened. She states she thought it could be anxiety, but she was concerned given the chest pain and decided to come in for evaluation. She denies any fevers, chills, cough, congestion, history of blood clots, clotting disorders, leg swelling, abdominal pain, nausea, vomiting, changes in bowel movements, or other concerns. She does note recent stress and anxiety. Related Data Home Medications Medication Instructions Recorded Confirmed vit no.95-ferrous 1 each PO DAILY 02/15/21 02/15/21 fumarate 28 mg-folic acid 800 mcg tablet Previous Rx's Medication Instructions Recorded albuterol sulfate 90 mcg/actuation 1 - 2 puffs IH Q6HP PRN Wheezing 12/13/19 aerosol inhaler #1 inh amoxicillin 500 mg tablet 500 mg PO TID 10 days #30 tabs 03/23/21 hydroxyzine HCl 25 mg tablet 25 mg PO Q8H PRN itching #20 tabs 04/23/23 Allergies Allergy/AdvReac Type Severity Reaction Status Date / Time hydrocodone [HYDROCODONE] Allergy Unknown Verified 04/04/18 11:38 propranolol Allergy Verified 02/15/21 13:50 PFSH PFS Disclaimer: The information contained in this section may have been updated after the patient was seen, as this information can be updated by other users. Social History Smoking Status: Never smoker alcohol intake: never current occupational status: employed Travel in the last 8 weeks: None household members: family housing: house ROS Obtained: Yes All systems reviewed & no additional complaints except as documented Physical Exam General General appearance: alert and in no apparent distress Head Head exam: atraumatic and normocephalic Eye Eye exam: Present normal appearance, PERRL and EOMI ENT ENT exam: Present normal exam, normal oropharynx, mucous membranes moist and normal external ear exam Neck
== END 2023-04-23 14:11 | disposition home or self-care (01) ==
PROVIDERS: Emergency Provider Emergency Medicine
DX: R07.9 Chest pain, unspecified (principal); M25.511 Pain in right shoulder; M25.512 Pain in left shoulder; M54.2 Cervicalgia; R00.1 Bradycardia, unspecified
CPT/HCPCS: 71046; 80048; 84484; 84703; 85025; 93005; 99285

== ENCOUNTER 2023-11-29 15:04 | Emergency (ER) | payer SELFPAY ==
[2023-11-29 15:11] VITALS: BMI 21.6
--- NOTE | 2023-11-29 15:11 | XR_ITS ---
FINAL REPORT CLINICAL HISTORY: INJURY, LEFT KNEE PAIN FINDINGS: AP, lateral and oblique views of the left knee were obtained. There is no prior exam for comparison. There is no acute osseous abnormality of the left knee. The joint space is preserved. The soft tissues are normal. There is no joint effusion. IMPRESSION: No acute osseous abnormality of the left knee. Reviewed, Interpreted and Dictated by Tamiko Luz MD Transcribed by Clarissa Garcia Authenticated and [facility]
[2023-11-29 15:25] VITALS: BP 92/48; PULSE 64; RESP 18; TEMP 36.7; O2SAT 99
--- NOTE | 2023-11-29 15:42 | ED_ITS ---
Discharge Plan Disposition Patient Disposition: Home, Self-Care Condition: Good Prescriptions Prescriptions: New amoxicillin-pot clavulanate 875-125 mg Tablet 1 tab PO Q12H 10 Days Qty: 20 0RF bacitracin zinc [Antibiotic (bacitracin zinc)] 500 unit/gram ointment 1 applic topical TID Qty: 28.4 0RF Rx Instructions: apply to abrasions on knee as prescribed Referrals Follow up/Referrals: Provider,Referral, MD [Primary Care Provider] - See instructions Activity Restrictions/Add. Instructions Additional Instructions/Restrictions: Clean abrasions with antibacterial soap and water Use topical antibiotics as prescribed Follow up with your Family Doctor if no improvement or any worsening of symptom Straight to ER if any life threatening symptoms Clinical Impressions Clinical Impression: Contusion of knee Instructions Patient Instructions: DI for Abrasion, DI for Knee Pain Discharge ED Provider: Andie [place] [facility] [place] General Stated complaint: AO 2000injury left knee Mode of Arrival: Ambulatory Source of Information: Patient Limitations: No Limitations Time Seen by Provider: 11/29/23 15:42 Description of Symptoms (Recalled from Triage Doc. by RN): PATIENT STATES SHE WAS RIDING ON A TOY [employer] WEDNESDAY EVENING AND FELL OFF, INJURING HER LEFT KNEE HEENT Symptoms (Recalled from RN notes): No Resp Symptoms (Recalled from RN notes): No Skin Symptoms (Recalled from RN notes): No MS Symptoms (Recalled from RN notes): Yes Functional Status (Recalled from RN notes): WNL History of Present Illness Provider Complaint: Patient states that she was on an toy [employer] a couple days ago when she fell off it and landed on her left knee States that she has been having pain and burning in the sides of her left knee and scratched it up and looking a little red states that ever since she has been having pain and burning in sides of her left knee when she bends it or tries to walk so today she came in to get it checked denies any other injury Related Data Previous Rx's Medication Instructions Recorded amoxicillin 875 mg-potassium 1 tab PO Q12H 10 days #20 tabs 11/29/23 clavulanate 125 mg tablet bacitracin zinc 500 unit/gram 1 applic topical TID #28.4 grams 11/29/23 topical ointment (Antibiotic (bacitracin zinc)) Allergies Allergy/AdvReac Type Severity Reaction Status Date / Time hydrocodone [HYDROCODONE] Allergy Unknown Verified 04/04/18 11:38 propranolol Allergy Verified 02/15/21 13:50 Worker's Comp Is this a Worker's Comp case?: No [facility] Disclaimer: The information contained in this section may have been updated after the patient was seen, as this information can be updated by other users. Social History Smoking Status: Never smoker alcohol intake: never current occupational status: employed Travel in the last 8 weeks: None household members: family housing: house ROS Obtained: Yes All systems reviewed & no additional complaints except as documented and Yes Systems reviewed as appropriate & no additional complaints except as documented Constitutional Constitutional: Reports system reviewed and no additional complaints, except as documented and Reports as per HPI ENT Ears, Nose, Mouth, and Throat: Reports system reviewed and no additional complaints, except as documented and Reports as per HPI Cardiovascular Cardiovascular: Reports system reviewed and no additional complaints, except as documented and Reports as per HPI Respiratory Respiratory: Reports system reviewed and no additional complaints, except as documented and Reports as per HPI Gastrointestinal Gastrointestingal: Reports system reviewed and no additional complaints, except as documented and as per HPI Musculoskeletal Musculoskeletal: Reports system reviewed and no additional complaints, except as documented, Reports as per HPI and Reports other (pain in left knee and abrasions to left knee) Physical Exam General General appearance: alert and in no apparent distress Respiratory Respiratory exam: Present normal lung sounds bilaterally; Absent respiratory distress or wheezes Cardiovascular Cardiovascular exam: Present regular rate, normal rhythm and normal heart sounds Expanded Lower Extremity Exam Left: Knee exam: Present tenderness, swelling (mild) and abrasion Lower leg exam: Present normal inspection Ankle exam: Present normal inspection Neurological Exam Neurological exam: Present alert, oriented X3 and normal gait Medical Decision Making Diomedes Inquiry Pt receiving controlled substance: No Diomedes was queried for this patient: No Vital Signs: 11/29/23 15:25 Temperature 98.1 F Temperature Source Oral Pulse Rate [Left Brachial] 64 Respiratory Rate 18 Blood Pressure [Left Arm] 92/48 L Blood Pressure Mean [Left Arm] 62 Blood Pressure Source [Left Arm] Automatic Cuff Blood Pressure Position [Left Arm] Sitting 02 Sat by Pulse Oximetry 99 Oxygen Delivery Method Room Air Orders (Tests/Meds): ORDERS Category Date Time Status Knee XR left 3 views [XR knee LT 3V] Stat Exams 11/29/23 15:11 Taken Radiology Data #1: Image(s): Knee Image Reviewed: Yes I have reviewed radiologist's interpretation FINDINGS: AP, lateral and oblique views of the left knee were obtained. There is no prior exam for comparison. There is no acute osseous abnormality of the left knee. The joint space is preserved. The soft tissues are normal. There is no joint effusion. IMPRESSION: No acute osseous abnormality of the left knee.
[2023-11-29 17:00] VITALS: BP 92/48; PULSE 64; RESP 18; TEMP 36.7; O2SAT 99
--- NOTE | 2023-11-29 17:05 | PC.NURSE ---
PATIENT LEFT WITHOUT DISCHARGE INSTRUCTIONS
== END 2023-11-29 17:01 | disposition home or self-care (01) ==
PROVIDERS: Emergency Provider Nurse Practitioner
DX: S80.02XA Contusion of left knee, initial encounter (principal); M25.562 Pain in left knee; W19.XXXA Unspecified fall, initial encounter
CPT/HCPCS: 73562; 99212; 99214; G0463

== ENCOUNTER 2024-10-07 19:01 | Emergency (ER) | payer SELFPAY ==
[2024-10-07 19:09] VITALS: BP 133/77; PULSE 92; RESP 16; TEMP 36.4; O2SAT 100; BMI 20.5
--- NOTE | 2024-10-07 19:24 | ED_ITS ---
Discharge Plan Disposition Patient Disposition: Home, Self-Care Condition: Good Prescriptions Prescriptions: No Action amoxicillin-pot clavulanate 875-125 mg Tablet 1 tab PO Q12H 10 Days Qty: 20 0RF bacitracin zinc [Antibiotic (bacitracin zinc)] 500 unit/gram ointment 1 applic topical TID Qty: 28.4 0RF Rx Instructions: apply to abrasions on knee as prescribed Referrals Follow up/Referrals: Provider,Referral, MD [Referring] - See instructions Activity Restrictions/Add. Instructions Additional Instructions/Restrictions: Today you were evaluated in the emergency department. Your lab workup is overall unremarkable. Your test is negative. Please follow-up with your PCP within 2 to 3 days. Please return to the ED for worsening of condition. Clinical Impressions Clinical Impression: Vaginal bleeding Instructions Patient Instructions: DI for Vaginal Bleeding Print Language Print Language: Spanish Discharge ED Provider: Carlos Urrutia Adult HPI <Aimee Ren APRN - Last Filed: 10/07/24 20:35> General Chief complaint: Vaginal Bleeding Stated complaint: Bleeding and Passing Clots Time Seen by Provider: 10/07/24 19:16 Mode of Arrival: Ambulatory Source of Information: Patient Description of Symptoms (Recalled from ER Triage Doc. by RN): Patient reports vaginal bleeding x6 days. Patient reports passing a large blood clot about a golf ball size. Patient reports her LMP is not suppose to start for 1 week. Patient states there is always a chance she could be . History of Present Illness HPI narrative: patient is a 29-year-old female PMHx anxiety, who presents to the ED for complaints of 2 days of vaginal bleeding. Patient states she is due to start her period in a few days however she has never early. She states she has had period cramping that is worse than her normal cramps. Related Data Previous Rx's ?Medication ?Instructions ?Recorded amoxicillin 875 mg-potassium 1 tab PO Q12H 10 days #20 tabs 11/29/23 clavulanate 125 mg tablet bacitracin zinc 500 unit/gram 1 applic topical TID #28.4 grams 11/29/23 topical ointment (Antibiotic (bacitracin zinc)) Allergies Allergy/AdvReac Type Severity Reaction Status Date / Time hydrocodone (HYDROCODONE) Allergy Unknown Verified 04/04/18 11:38 propranolol Allergy Verified 02/15/21 13:50 PFSH <Aimee Ren APRN - Last Filed: 10/07/24 20:35> [facility] Disclaimer: The information contained in this section may have been updated after the patient was seen, as this information can be updated by other users. Social History Smoking Status: Never smoker alcohol intake: never current occupational status: employed Travel in the last 8 weeks?: None household members: family housing: house Have you lived/traveled outside US in past 30 days?: No Contact w/someone who lives/traveled outside US past 30 days?: No Exposure to someone with infectious disease in past 14 days?: No Do you have a fever (greater than 100.4 F or 38 C)?: No Have you tested positive for COVID-19?: No Exposed to someone with COVID-19 in past 14 days?: No Do you have a sore throat?: No Do you have a cough?: No Do you have any weakness?: No Do you have any diarrhea?: No Are you experiencing any unusual bleeding?: No Do you have any muscle aches/pain?: No Do you have any abdominal pain?: Yes Are you experiencing loss of taste or smell?: No Other Medical History Have you received the Flu Vaccine for this season: No Have you received the Pneumonia Vaccine: No <Aimee Ren APRN - Last Filed: 10/07/24 20:35> ROS Obtained: Yes Systems reviewed as appropriate & no additional complaints except as documented Physical Exam <Aimee Ren APRN - Last Filed: 10/07/24 20:35> General General appearance: alert and in no apparent distress Head Head exam: atraumatic and normocephalic Eye Eye exam: Present normal appearance and PERRL ENT ENT exam: Present normal exam Neck Neck exam: Present normal inspection Chest Chest inspection: Present normal inspection and symmetric chest wall rise; Absent tenderness Respiratory Respiratory exam: Present normal lung sounds bilaterally Cardiovascular Cardiovascular exam: Present regular rate Abdominal Exam Abdominal exam: Present soft and normal bowel sounds; Absent tenderness Extremities Exam Extremities exam: Present normal inspection and full ROM Back Exam Back exam: Present normal inspection and full ROM Neurological Exam Neurological exam: Present alert and oriented X3 Psychiatric Psychiatric exam: Present normal affect and normal mood Skin Skin exam: Present warm and dry Medical Decision Making <Aimee Ren APRN - Last Filed: 10/07/24 20:35> Medical Records Screening: Per USPSTF and CDC recommendations, given the prevalence of disease in our region, it is our hospital?s policy to screen for HIV and viral Hepatitis for all patients aged 18 and over and those with ongoing risk factors. Diomedes Inquiry Pt receiving controlled substance: No Vital Signs: 10/07/24 19:09 10/07/24 20:39 Temperature 97.6 F 98 F Temperature Source Temporal Artery Scan Pulse Rate 74 Pulse Rate [Right] 92 H Respiratory Rate 16 18 Blood Pressure 106/66 L Blood Pressure [Right Arm] 133/77 Blood Pressure Mean [Right Arm] 95 Blood Pressure Position Sitting 02 Sat by Pulse Oximetry 100 Oxygen Delivery Method Room Air Room Air Lab Data Lab Results 10/07/24 19:40: WBC 9.5, RBC 4.78, Hgb 14.3, Hct 43.6, MCV 91.2, MCH 29.9, MCHC 32.8, RDW 11.6, Plt Count 236, MPV 11.6 H, Neut % (Auto) 46.9, Lymph % (Auto) 44.7, Johnson % (Auto) 5.9, Eos % (Auto) 1.6, Baso % (Auto) 0.8, Neut # (Auto) 4.5, Lymph # (Auto) 4.3, Johnson # (Auto) 0.6, Eos # (Auto) 0.2, Baso # (Auto) 0.1, Sodium 140, Potassium 3.7, Chloride 104, Carbon Dioxide 28, Anion Gap 11.7, BUN 15, Creatinine 0.60, Estimated Creat Clear 115, Estimated GFR 118, Est GFR ( Amer) 143, Glucose 94, Calcium 10.1, Total Bilirubin 0.3, AST 37 H, ALT 25, Alkaline Phosphatase 61, Total Protein 8.4 H, Albumin 5.3 H, Globulin 3.1, Albumin/Globulin Ratio 1.7, Serum HCG, Qual Negative 10/07/24 19:54: Urine Color Yellow, Urine Appearance Clear, Urine pH 6.0, Ur Specific Hamilton 1.025, Urine Protein Negative, Urine Glucose (UA) Negative, Urine Ketones Negative, Urine Blood 1+ A, Urine Nitrate Negative, Urine Bilirubin Negative, Urine Urobilinogen 0.2, Ur Leukocyte Esterase Negative, Urine RBC 3-5, Urine WBC Occasional, Ur Squamous Epith Cells Occasional, Urine Bacteria None 10/07/24 19:40 10/07/24 19:40 Orders (Tests/Meds): ORDERS Category Date Time Status CBC w/Auto Diff [Complete Blood Count Auto Diff] Stat Lab 10/07/24 19:40 Completed CMP [Comprehensive Metabolic Panel] Stat Lab 10/07/24 19:40 Completed HCG Qualitative, Serum Stat Lab 10/07/24 19:40 Completed Urinalysis and Microscopic Stat Lab 10/07/24 19:54 Completed Medical Decision Narrative: In summary, patient is a 29-year-old female PMHx anxiety, who presents to the ED for complaints of 2 days of vaginal bleeding. Patient states she is due to start her period in a few days however she has never early. She states she has had period cramping that is worse than her normal cramps. She states that she is concerned she may be . Denies any additional complaints at this time. Has not taken a test prior to arrival. Has not taken any medication. Denies fever, chills, body aches, chest pain, shortness of breath, headache, nausea, vomiting, dysuria. Upon initial evaluation patient is alert, oriented and cooperative. She is hemodynamically stable. Her abdomen is soft and nontender. Discussed with patient we will proceed with labs, urine and pelvic exam. She is agreeable at this time. CBC unremarkable for any leukocytosis, stable H&H. CMP overall unremarkable for any actionable abnormalities. hCG negative. Urinalysis remarkable for 1+ blood, no infectious process noted. Discussed with patient that her workup is overall unremarkable. Advised her that I feel she has started her menstrual cycle a few days early. We discussed need for follow-up with PCP within 2 2 to 3 days. Discussed return precautions to the ED. Patient verbalized understanding. No active bleeding while in the ED. <Carlos Urrutia MD - Last Filed: 10/08/24 23:30> Vital Signs: 10/07/24 19:09 10/07/24 20:39 Temperature 97.6 F 98 F Temperature Source Temporal Artery Scan Pulse Rate 74 Pulse Rate [Right] 92 H Respiratory Rate 16 18 Blood Pressure 106/66 L Blood Pressure [Right Arm] 133/77 Blood Pressure Mean [Right Arm] 95 Blood Pressure Position Sitting 02 Sat by Pulse Oximetry 100 Oxygen Delivery Method Room Air Room Air Lab Data Lab Results 10/07/24 19:40: WBC 9.5, RBC 4.78, Hgb 14.3, Hct 43.6, MCV 91.2, MCH 29.9, MCHC 32.8, RDW 11.6, Plt Count 236, MPV 11.6 H, Neut % (Auto) 46.9, Lymph % (Auto) 44.7, Johnson % (Auto) 5.9, Eos % (Auto) 1.6, Baso % (Auto) 0.8, Neut # (Auto) 4.5, Lymph # (Auto) 4.3, Johnson # (Auto) 0.6, Eos # (Auto) 0.2, Baso # (Auto) 0.1, Sodium 140, Potassium 3.7, Chloride 104, Carbon Dioxide 28, Anion Gap 11.7, BUN 15, Creatinine 0.60, Estimated Creat Clear 115, Estimated GFR 118, Est GFR ( Amer) 143, Glucose 94, Calcium 10.1, Total Bilirubin 0.3, AST 37 H, ALT 25, Alkaline Phosphatase 61, Total Protein 8.4 H, Albumin 5.3 H, Globulin 3.1, Albumin/Globulin Ratio 1.7, Serum HCG, Qual Negative 10/07/24 19:54: Urine Color Yellow, Urine Appearance Clear, Urine pH 6.0, Ur Specific Hamilton 1.025, Urine Protein Negative, Urine Glucose (UA) Negative, Urine Ketones Negative, Urine Blood 1+ A, Urine Nitrate Negative, Urine Bilirubin Negative, Urine Urobilinogen 0.2, Ur Leukocyte Esterase Negative, Urine RBC 3-5, Urine WBC Occasional, Ur Squamous Epith Cells Occasional, Urine Bacteria None Orders (Tests/Meds): ORDERS Category Date Time Status CBC w/Auto Diff [Complete Blood Count Auto Diff] Stat Lab 10/07/24 19:40 Completed CMP [Comprehensive Metabolic Panel] Stat Lab 10/07/24 19:40 Completed HCG Qualitative, Serum Stat Lab 10/07/24 19:40 Completed Urinalysis and Microscopic Stat Lab 10/07/24 19:54 Completed Medical Decision Narrative: In summary, patient is a 29-year-old female PMHx anxiety, who presents to the ED for complaints of 2 days of vaginal bleeding. Patient states she is due to start her period in a few days however she has never early. She states she has had period cramping that is worse than her normal cramps. She states that she is concerned she may be . Denies any additional complaints at this time. Has not taken a test prior to arrival. Has not taken any medication. Denies fever, chills, body aches, chest pain, shortness of breath, headache, nausea, vomiting, dysuria. Upon initial evaluation patient is alert, oriented and cooperative. She is hemodynamically stable. Her abdomen is soft and nontender. Discussed with patient we will proceed with labs, urine and pelvic exam. She is agreeable at this time. CBC unremarkable for any leukocytosis, stable H&H. CMP overall unremarkable for any actionable abnormalities. hCG negative. Urinalysis remarkable for 1+ blood, no infectious process noted. Discussed with patient that her workup is overall unremarkable. Advised her that I feel she has started her menstrual cycle a few days early. We discussed need for follow-up with PCP within 2 2 to 3 days. Discussed return precautions to the ED. Patient verbalized understanding. No active bleeding while in the ED. I was consulted by the JAYNA, and we discussed the complexity of the problems being addressed.I approved the treatment and management plan for this patient?s care in the Emergency Department, thus performing a substantive portion of the medical decision making.Signed, Carlos Urrutia MD MBA Critical Care <Aimee Ren APRN - Last Filed: 10/07/24 20:35> Critical Care Time Critical Care Time: No
[2024-10-07 20:03] LABS: Basophils # 0.1 K/mm3 (0-0.2); Basophils % 0.8 % (0.1-2.0); Eosinophils # 0.2 Kmm3 (0.0-0.4); Eosinophils % 1.6 % (0.1-12.0); Hematocrit 43.6 % (37.0-47.0); Hemoglobin 14.3 g/dL (12.2-16.2); Immature Granulocytes # 0.01 10^3uL; Immature Granulocytes % 0.1 %; Lymphocytes # 4.3 K/mm3 (0.7-4.5); Lymphocytes % 44.7 % (10-50); Mean Corpuscular HGB Conc 32.8 g/dL (31.8-35.4); Mean Corpuscular Hemoglobin 29.9 pg (27.0-31.2); Mean Corpuscular Volume 91.2 fl (81-99); Mean Platelet Volume 11.6 fl (7.4-10.4); Monocytes # 0.6 K/mm3 (0.1-1.0); Monocytes % 5.9 % (1.7-9.3); Neutrophils # 4.5 K/mm3 (1.8-7.8); Neutrophils % 46.9 % (37.0-80.0); Nucleated Red Blood Cells # 0 10^3/uL; Nucleated Red Blood Cells % 0 %; Platelet Count 236 K/mm3 (142-424); Red Blood Count 4.78 M/mm3 (4.20-5.40); Red Cell Distribution Width 11.6 % (11.5-17.5); Red Cell Distribution Width-SD 39.1 fL; White Blood Count 9.5 K/mm3 (4.8-10.8)
[2024-10-07 20:09] LABS: Chloride 104 mmol/L (98-107)
[2024-10-07 20:10] LABS: Albumin Level 5.3 g/dl (3.5-5.0); Potassium 3.7 mmoL/L (3.5-5.1); Sodium 140 mmol/L (136-145)
[2024-10-07 20:12] LABS: Alanine Aminotransferase 25 U/L (12-78); Anion Gap 11.7 mEq/L (5-15); Aspartate Amino Transferase 37 U/L (14-36); Blood Urea Nitrogen 15 mg/dl (7-17); Carbon Dioxide 28 mmol/L (22.0-30.0); Creatinine Clearance Estimated 115 mL/min (50-200); Estimated Glomerular Filt Rate 118 ml/min (>60); GFR (African American) 143 ML/MIN (>60)
[2024-10-07 20:13] LABS: Albumin/Globulin Ratio 1.7 (1.1-1.8); Alkaline Phosphatase 61 U/L (38-126); Bilirubin,Total 0.3 mg/dl (0.2-1.3); Calcium 10.1 mg/dl (8.4-10.2); Globulin 3.1 g/dL (1.3-3.2); Glucose 94 mg/dl (74-100); Total Protein,Serum 8.4 g/dl (6.3-8.2)
[2024-10-07 20:17] LABS: Microscopic, Urine URINE MICROSCOPIC (MICROSCOPIC)
[2024-10-07 20:18] LABS: Appearance,Urine CLEAR (Clear); Bilirubin,Urine Negative (Negative); Blood, Urine 1+ (Negative); Color,Urine YELLOW (Yellow); Glucose,Urine (UA) Negative (Negative); Ketones,Urine Negative (Negative); Leukocyte Esterase,Urine Negative (Negative); Nitrate,Urine Negative (Negative); Protein,Urine Negative (Negative); Specific Gravity, Urine 1.025 (1.005-1.030); Urobilinogen,Urine 0.2 EU/dl (0.2)
[2024-10-07 20:23] LABS: HCG Qualitative, Serum Negative (Negative)
[2024-10-07 20:35] LABS: Squamous Epithelial Cell,Urine Occasional #/hpf (0-5); WBC,Urine Occasional #/hpf (0-3)
[2024-10-07 20:39] VITALS: BP 106/66; PULSE 74; RESP 18; TEMP 36.6; O2SAT 100
== END 2024-10-07 20:41 | disposition home or self-care (01) ==
PROVIDERS: Nurse Practitioner; Emergency Provider Emergency Medicine; PCP Nurse Practitioner
DX: N93.9 Abnormal uterine and vaginal bleeding, unspecified (principal)
CPT/HCPCS: 80053; 81001; 84703; 85025; 99284

== ENCOUNTER 2024-12-04 17:54 | Outpatient (CLI) | payer SELFPAY ==
--- OUTSIDE RECORDS SUMMARY | 2024-12-04 17:57 | XMS_ITS | Clinical Summary ---
[facility] Organization [facility] Address [address] [place] [address] Care Team Providers Care Office Services Manager Name Role Phone Andrea Raygoza APRN Primary Care Provider [phone] Allergies Active Allergy Reactions Criticality Noted Date Comments Hydrocodone Shortness Of Breath High 02/22/2021 Propranolol Shortness Of Breath High 02/22/2021 Medications Vit-Fe Fumarate-FA ( 27-) 27-1 MG tablet tablet Take 1 tablet by mouth Daily. Active albuterol (PROVENTIL) (2.5 MG/3ML) 0.083% nebulizer solution Take 2.5 mg by nebulization Every 4 (Four) Hours As Needed for Wheezing. Active ferrous sulfate 325 (65 FE) MG tablet Take 1 tablet by mouth 2 (Two) Times a Day With Meals. 60 tablet 1 2 Active ibuprofen (ADVIL,MOTRIN) 600 MG tablet Take 1 tablet by mouth Every 6 (Six) Hours. 30 tablet 2 Active sertraline (Zoloft) 50 MG tabletIndicatio ns: follow-up Take 1 tablet by mouth Daily. 30 tablet 5 2 Active levonorgestrel- ethinyl estradiol (AVIANE,ALESSE, LESSINA) 0.1-20 MG-MCG per tablet Take 1 tablet by mouth Daily. 28 tablet 12 2 Active Active Problems Problem Noted Date Diagnosed Date Large for dates affecting management of mother 0 08/25/2021 07/14/2021 Immunizations Immunization Administration Dates Next Due Tdap 08/11/2021 Family History Medical History Relation Name Comments Ovarian cancer Maternal Grandmother Ovarian cancer Mother Relation Name Status Comments Maternal Grandmother Mother Social History Tobacco Use Types Packs/Day Years Used Date Smoking Tobacco: Never Smokeless Tobacco: Never Alcohol Use Standard Drinks/Week Comments Not Currently 0 (1 standard drink = 0.6 oz pur e alcohol) Bixby Depression Scale Answer Date Recorded Retired Bixby Depression Score 6 11/11/2021 Retired EPD Scale: Thought of Harming Self Unrec ognized value 11/11/2021 Abuse Screen Answer Date Recorded Unsafe at Home or Work/School Not on file Feels Threatened by Someone? Not on file Does Anyone Keep You from Co ntacting Others or Doint Things Outside the Home? Not on file 02/26/2023 Physical Sign of Abuse Present Not on file 1 Housing Stability Answer Date Recorded Current Living Arrangements Not on file 02/14 Potentially Unsafe Housing Conditions Not on froy e 02/26/2023 Family and Community Support Answer Cristopher e Recorded Help with Day-to-Day Activities Not on file 02/26/2023 Lonely or Isolated Not on file 02/26/2023 Employment Answer Date Recorded Do you want help finding or keeping work or a saeid b? Not on file 02/26/2023 Disabilities Answer Date Recorded Concentrating, Remembering, or Making Decisions Difficulty Not on file 02/26/2023 Doing Errands Independently Difficulty Not on fi le 02/26/2023 Education Answer Date Recorded Help with school or training? Not on file Preferred Language Not on file 02/26/2023 Comments No Sex and Gender Information Value Date Recorded Sex Assigned at Not on file Legal Sex Female 11:31 AM EDT Gender Identity Not on file Sexual Orientation Not on file Last Filed Vital Signs Vital Sign Reading Time Taken Comments Blood Pressure 92/76 11/11/2021 3:58 PM EDT Pulse 79 10/06/2021 8:00 AM EDT Temperature 36.6 C (97.9 F) 10/06/2021 8:00 AM EDT Respiratory Rate 16 10/06/2021 8:00 AM EDT Oxygen Saturation 96% 10/03/2021 3:30 PM EDT Inhaled Oxygen Concentration - - Weight 59.4 kg (131 lb) 11/11/2021 3:58 PM EDT Height 160 cm (5' 3 ) 11/11/2021 3:58 PM EDT Body Mass Index 23.21 11/11/2021 3:58 PM EDT Plan of Treatment Health Maintenance Due Date Last Done Comments Annual Gynecologic Pelvic an d Breast Exam 1995 ANNUAL PHYSICAL 06/04/2021 COVID-19 Vaccine ( - 2023-2 5 season) 2024 INFLUENZA VACCINE 02/14/2025 TDAP/TD VACCINES (4 - Td or Tdap) 08/12/2031 08/11/2021, 07/27/2015, 01/10/2007 HEPATITIS C SCREENING Completed 03/17/2021 , 03/17/2021 Pneumococcal Vaccine 0-49 Aged Out No longer eligible based on patient's age to complete this topic Insurance PPO Advance Directives * CPR (Attempt to Resuscitate) (Latest Code Status on File) Date Activated Date Inactivated Comments 10/03/2021 5:10 PM 10/06/2021 4:48 PM Question Answer Comments Code Status (Patient has no pulse and is not breathing): CPR (Attempt to Resuscitate) Medical Interventions (Patie nt has pulse or is breathing): Full * CPR (Attempt to Resuscitate) Date Activated Date Inactivated Comments 10/01/2021 5:09 PM 10/03/2021 5:10 PM Question Answer Comments Code Status (Patient has no pulse and is not breathing): CPR (Attempt to Resuscitate) Medical Interventions (Patie nt has pulse or is breathing): Full Support Level Of Support Discussed With: Patient Care Teams Office Services Manager Relationship Specialty Start Date End Date Andrea Raygoza APRN PCP - General Family Medicine 02/22/21
--- OUTSIDE RECORDS SUMMARY | 2024-12-04 17:57 | XMS_ITS | Clinical Summary ---
Author Organization [facility] Address [address] [place] [address] Care Team Providers Care Senior C Software Developer Name Role Phone Андрей Woods MD Primary Care Provider [phone] Allergies Active Allergy Reactions Criticality Noted Date Comments Hydrocodone Shortness of breath High 02/22/2021 Propranolol Shortness of breath High 02/22/2021 Medications 27-1 MG tablet Take 1 tablet by mouth 1 (one) time each day. Active folic acid (Folvite) 1 MG tablet Take by mouth 1 (one) time each day. Active Immunizations Immunization Administration Dates Next Due DTP-Hib-Hep B 05/02/1996,1995 DTaP 01/05/2000,03/20/1997,08/25/1996 HPV, Quadrivalent 01/14/2012,01/10/2007 Hep B, Adolescent or Pediatric 08/25/1996,1995 Hib (PRP-OMP) 08/25/1996 IPV 01/05/2000 MMR 01/05/2000,08/25/1996 Meningococcal MCV4O 01/14/2012 OPV Bivalent - Non-US 08/25/1996,05/02/1996,09/15 Tdap 07/27/2015,01/10/2007 Varicella 01/14/2012,07/19/1998 Family History Medical History Relation Name Comments Ovarian cancer Maternal Grandmother Relation Name Status Comments Maternal Grandmother Social History Tobacco Use Types Packs/Day Years Used Date Smoking Tobacco: Never Smokeless Tobacco: Never Comments No Sex and Gender Information Value Date Recorded Sex Assigned at Not on file Legal Sex Female 6:05 PM EDT Gender Identity Not on file Sexual Orientation Not on file Last Filed Vital Signs Vital Sign Reading Time Taken Comments Blood Pressure 96/46 05/26/2021 1:52 PM EST Pulse - - Temperature - - Respiratory Rate 16 09/06/2018 11:37 AM EDT Oxygen Saturation - - Inhaled Oxygen Concentration - - Weight 59.1 kg (130 lb 4.7 oz) 05/26/2021 1:52 P M EST Height 160 cm (5' 3 ) 09/06/2018 11:37 AM EDT Body Mass Index 23.08 09/06/2018 11:37 AM EDT Plan of Treatment Health Maintenance Due Date Last Done Comments [facility]-Depression Screening 1995 [facility]-Infant/Child/Adol SDOH Screenings 1995 [facility]-IPV Vaccines (2 of 3 - 4-dose series) 02/02/2000 01/05/2000, 08/25/1996, 05/02/1996, Additional history exists [facility]- SDOH Screenings 2013 [facility]-Adult SDOH Screenings 2013 [facility]-Pap Smear 2016 [id number] Vaccine ( season) 2024 [facility]-Influenza Vaccine (#1) 2025 [facility]-DTaP,Tdap,and Td Vaccines (8 - Td or Tdap) 07/26/2025 07/27/2015, 01/10/2007, 01/05/2000, Additional history exists [facility]-Zoster Vaccines (1 of 2) 2045 01/14/2012, 07/19/1998 [facility]-HIB Vaccines Completed 08/25/1996, , 1995 [facility]-Hepatitis B Vaccines Completed 997, 05/02/1996, 1995, Additional history exists HPV Vaccines Completed 01/14/2012, 01/10/2007 [facility]-Varicella Vaccines Completed 01/14/2012, 1998 [facility]-Hepatitis A Vaccines Aged Out No longer eligible based on patient's age to complete this topic [facility]-Pneumococcal Vaccine: Pediatrics (0 to 5 Years) and At-Risk Patients (6 to 49 Years) Aged Out No longer eligible based on patient's age to complete this topic [facility]-Rotavirus Vaccines Aged Out No lo nger eligible based on patient's age to complete this topic Insurance ANTHEM Care Teams Senior C Software Developer Relationship Specialty Start Date End Date Андрей Woods MD [address] [place] [id number] PCP - General 09/27/20
== END 2024-12-04 23:59 | disposition home or self-care (01) ==
LOC: LAB.DROPOF 17:55
PROVIDERS: PCP Student in an Organized Health Care Education/Training Program; Visit Provider Student in an Organized Health Care Education/Training Program
DX: R39.9 Unspecified symptoms and signs involving the genitourinary system (principal)
CPT/HCPCS: 87086